=== PATIENT | female | born 1960 | race Caucasian/White ===

== ENCOUNTER 2020-09-03 09:09 | Outpatient (REF) | payer OTHER, SELFPAY ==
[2020-09-03 11:08] LABS: Free T4 (Free Thyroxine) 2.26 ng/dL (0.71-1.85); Thyroid Stimulating Hormone 0.01 uIU/mL (0.32-4.0)
== END 2020-09-03 09:10 | disposition home or self-care (01) ==
LOC: HO.LAB 09:09
PROVIDERS: PCP Internal Medicine; Visit Provider Internal Medicine Endocrinology, Diabetes & Metabolism
DX: E03.8 Other specified hypothyroidism (principal)
CPT/HCPCS: 84439; 84443

== ENCOUNTER → 2020-09-04 10:45 | Outpatient (BNVA) | payer OTHER, SELFPAY | PROVIDERS: PCP Internal Medicine; Visit Provider Internal Medicine Endocrinology, Diabetes & Metabolism | DX: E11.65 Type 2 diabetes mellitus with hyperglycemia (principal); E11.40 Type 2 diabetes mellitus with diabetic neuropathy, unspecified; E11.3293 Type 2 diabetes mellitus with mild nonproliferative diabetic retinopathy without macular edema, bilateral; I10 Essential (primary) hypertension; E03.9 Hypothyroidism, unspecified; E55.9 Vitamin D deficiency, unspecified; E66.9 Obesity, unspecified; E04.2 Nontoxic multinodular goiter; D51.0 Vitamin B12 deficiency anemia due to intrinsic factor deficiency | CPT/HCPCS: 82947; 99212 ==

== ENCOUNTER 2020-12-03 08:30 | Outpatient (REF) | payer OTHER, SELFPAY ==
[2020-12-03 09:44] LABS: Hematocrit 48.6 % (37-47); Hemoglobin 15.3 g/dl (12.0-16.0); Mean Corpuscular HGB Conc 31.5 g/dl (31.0-35.0); Mean Corpuscular Hemoglobin 27.2 pg (27.0-33.0); Mean Corpuscular Volume 86.3 fL (80-98); Mean Platelet Volume 12.4 fL (9.4-12.3); Platelet Count 188 X10*3/uL (160-400); Red Blood Count 5.63 X10*6/uL (4.20-5.50); Red Cell Distribution Width 13.5 % (11.0-16.0); White Blood Count 4.1 X10*3/uL (4.8-10.8)
[2020-12-03 10:12] LABS: Creatinine Urine 67.02 mg/dL; Microalbumin Urine < 5.0 mg/L
[2020-12-03 10:21] LABS: Alanine Aminotransferase 55 U/L (0-31); Alkaline Phosphatase 541 U/L (39-117); Anion Gap 13 (12-20); Aspartate Amino Transferase 40 U/L (5-31); Bilirubin Total 1.8 mg/dL (0.0-1.0); Blood Urea Nitrogen 15 mg/dL (9-16); Carbon Dioxide 31 mmol/L (22-29); Chloride 101 mmol/L (96-108); Cholesterol 159 mg/dL; Estimated Glomerular Filt Rate 51; Glucose Fasting 175 mg/dL (60-99); HDL Cholesterol 38 mg/dL; LDL Cholesterol Calculated 82 mg/dl; Potassium 4.3 mmol/L (3.3-5.1); Sodium 141 mmol/L (135-145); Total Protein 7.2 g/dL (6.5-8.0); Triglycerides 195 mg/dL
[2020-12-03 10:34] LABS: Free T4 (Free Thyroxine) 1.55 ng/dL (0.71-1.85); Thyroid Stimulating Hormone 0.19 uIU/mL (0.32-4.0); Vitamin D 25-OH Total 33.1 ng/mL (>30)
[2020-12-03 11:32] LABS: Vitamin B12 1556 pg/mL (200-900)
[2020-12-04 03:27] LABS: LDL Cholesterol Direct 82 mg/dL (<100)
== END 2020-12-03 08:31 | disposition home or self-care (01) ==
LOC: HO.LAB 08:30
PROVIDERS: PCP Internal Medicine; Visit Provider Internal Medicine Endocrinology, Diabetes & Metabolism
DX: E11.65 Type 2 diabetes mellitus with hyperglycemia (principal)
CPT/HCPCS: 36415; 80053; 80061; 82043; 82306; 82607; 83721; 84439; 84443; 85027

== ENCOUNTER → 2020-12-04 10:27 | Outpatient (BNVA) | payer OTHER, SELFPAY | PROVIDERS: PCP Internal Medicine; Visit Provider Internal Medicine Endocrinology, Diabetes & Metabolism | DX: E11.65 Type 2 diabetes mellitus with hyperglycemia (principal); E11.42 Type 2 diabetes mellitus with diabetic polyneuropathy; E11.3293 Type 2 diabetes mellitus with mild nonproliferative diabetic retinopathy without macular edema, bilateral; E03.8 Other specified hypothyroidism; E06.3 Autoimmune thyroiditis; E04.2 Nontoxic multinodular goiter; E78.5 Hyperlipidemia, unspecified; E55.9 Vitamin D deficiency, unspecified; E66.9 Obesity, unspecified; I10 Essential (primary) hypertension; D51.0 Vitamin B12 deficiency anemia due to intrinsic factor deficiency; R94.5 Abnormal results of liver function studies | CPT/HCPCS: 82947; 99212 ==

== ENCOUNTER → 2021-01-01 11:36 | Outpatient (BNVA) | payer OTHER, SELFPAY | PROVIDERS: PCP Internal Medicine; Visit Provider Physician Assistant | DX: R94.5 Abnormal results of liver function studies (principal); R68.81 Early satiety | CPT/HCPCS: 99212 ==

== ENCOUNTER 2021-01-08 10:05 | Outpatient (REF) | payer OTHER, SELFPAY ==
[2021-01-08 18:20] LABS: Thyroid Stimulating Hormone 3.05 uIU/mL (0.32-4.0)
[2021-01-08 18:27] LABS: Alanine Aminotransferase 28 U/L (0-31); Albumin Level 3.6 g/dL (3.5-5.0); Alkaline Phosphatase 490 U/L (39-117); Aspartate Amino Transferase 27 U/L (5-31); Bilirubin Direct 1.3 mg/dL (0.0-0.5); Bilirubin Total 1.7 mg/dL (0.0-1.0); Gamma Glutamyl Transpeptidase 753 U/L (7-33); Total Protein 6.5 g/dL (6.5-8.0)
[2021-01-09 04:30] LABS: HBc Num1 0.07 S/CO (0.00-0.79); Hepatitis B Core Antibody Nonreactive (Nonreactive); ~HepC Num1 0.05 S/CO (0.00-0.79); ~Hepatitis C Antibody Nonreactive (Nonreactive)
[2021-01-09 04:43] LABS: HBS Num1 0.41 mIU/mL (0-7.99); HBsAGNum1 0.41 S/CO (0.00-0.99); Hepatitis B Surface Antigen Negative (Negative); ~Hepatitis B Surface Antibody NONREACTIVE (Nonreactive)
[2021-01-10 04:50] LABS: Hepatitis A Antibody IgM 0.09 Index (0-0.79); ~Hepatitis A Antibody IgM Nonreactive (Nonreactive)
[2021-01-10 10:41] LABS: Anti Nuclear Antibody Pattern Nuclear, Speckled; Anti Nuclear Antibody Screen POSITIVE (NEGATIVE); Anti Nuclear Antibody Titer 1:40 titer
[2021-01-10 15:56] LABS: Mitochondrial Antibodies NEGATIVE (NEGATIVE)
[2021-01-15 11:57] LABS: Smooth Muscle Antibody <20 U (<20)
== END 2021-01-08 10:06 | disposition home or self-care (01) ==
LOC: HO.LAB 10:05
PROVIDERS: PCP Internal Medicine; Visit Provider Physician Assistant
DX: R74.8 Abnormal levels of other serum enzymes (principal); R74.01 Elevation of levels of liver transaminase levels; R94.5 Abnormal results of liver function studies; R79.89 Other specified abnormal findings of blood chemistry; K59.09 Other constipation
CPT/HCPCS: 36415; 80076; 82977; 84443; 86038; 86039; 86255; 86256; 86704; 86706; 86709; 86803; 87340

== ENCOUNTER 2021-02-05 09:32 | Outpatient (REF) | payer OTHER, SELFPAY ==
[2021-02-05 11:29] LABS: Free T4 (Free Thyroxine) 0.46 ng/dL (0.71-1.85)
== END 2021-02-05 09:33 | disposition home or self-care (01) ==
LOC: HO.LAB 09:32
PROVIDERS: Visit Provider Internal Medicine Endocrinology, Diabetes & Metabolism
DX: E03.8 Other specified hypothyroidism (principal); E04.2 Nontoxic multinodular goiter; E06.3 Autoimmune thyroiditis
CPT/HCPCS: 36415; 84439; 84443

== ENCOUNTER → 2021-02-17 09:05 | Outpatient (BNVA) | payer OTHER, SELFPAY | PROVIDERS: PCP Internal Medicine; Visit Provider Dietitian, Registered | DX: E11.65 Type 2 diabetes mellitus with hyperglycemia (principal) | CPT/HCPCS: 97802 ==

== ENCOUNTER 2021-02-25 08:38 | Outpatient (REF) | payer OTHER, SELFPAY ==
--- NOTE | ~2021-02-25 | US_ITS ---
EXAMINATION: US COMPLETE ABDOMEN WITH LIVER ELASTOGRAPHY CLINICAL INFORMATION: COMPARISON: None. TECHNIQUE: Real-time imaging of the abdominal viscera. Noninvasive ultrasound liver fibrosis assessment is performed using Alli ElastPQ point quantification shear wave elastography (pSWE) with a C5-2 MHz transducer. Multiple elastography samples are obtained. FINDINGS: PANCREAS: Normal. ABDOMINAL AORTA: The proximal, middle, and distal aortic segments are normal in caliber. INFERIOR VENA CAVA: Visualized portions are normal. LIVER: Liver echotexture is slightly heterogeneous. No focal liver lesion is seen. There is intrahepatic biliary duct dilatation. The liver is slightly enlarged. The right lobe measures 20 cm in length. The left lobe measures 10 cm in length. Portal flow is normal/hepatopedal Shear wave liver elastography median stiffness is 1.9 m/s (reference: normal median stiffness is 1.3 m/s or less). IQR/median stiffness to assess sampling precision is 0.5 (reference: good quality data set is IQR/median stiffness of 0.15 or less). GALLBLADDER: The gallbladder is contracted. There are gallstones in the gallbladder. COMMON BILE DUCT: Slightly dilated measuring 1.2 cm in diameter. RIGHT KIDNEY: There is a 7 x 9 x 7 mm solid echogenic lesion in the midpole suggestive of an angiomyolipoma. There is a 1.6 x 1.7 x 1.3 cm complex cyst with several septations in the midpole. There is a 3 x 4 mm simple cyst in the midpole. No hydronephrosis. No renal calculi. The kidney measures 10 cm in maximum dimension. LEFT KIDNEY: There is a 1 cm cyst in the lower pole. There is fullness of the left renal pelvis. No renal calculi. The kidney measures 9.5 cm in maximum dimension. SPLEEN: Normal. The spleen measures 12.6 heterogeneous cm in maximum dimension. FREE FLUID: None. US/US abdomen comp w elastography IMPRESSION: 1. Impression: Heterogeneous appearing slightly enlarged liver. Mild intra and extrahepatic biliary duct dilatation. Gallstones. Bilateral renal cysts. 8 mm echogenic lesion in the right kidney probably representing an angiomyolipoma. 2. Liver elastography: Limited due to sampling error. Liver stiffness is elevated questionable for compensated advanced chronic liver disease. REFERENCE: Society of Radiologists in Ultrasound Liver Stiffness Thresholds (2020): LIVER STIFFNESS THRESHOLDS: *Liver Stiffness equal or less than 1.3 m/s: High probability of being normal. *Liver Stiffness less than 1.7 m/s: In the absence of other known clinical signs, rules out compensated advanced chronic liver disease. *Liver Stiffness 1.7-2.1 m/s: Suggestive of compensated advanced chronic liver disease but need further test for confirmation. *Liver Stiffness over 2.1 m/s: Rules in compensated advanced chronic liver disease. *Liver Stiffness over 2.4 m/s: Suggestive of clinically significant portal hypertension. QUALITY OF DATA SET: *IQR/Median value equal or less than 0.15 implies a quality data set. *IQR/Median value over 0.15 implies a poor quality data set. SIGNIFICANT CHANGE FROM PRIOR EXAM: Significant change if liver stiffness measurement is 10% or greater from prior exam. OTHER CONSIDERATIONS: The stage of liver fibrosis may be overestimated in the setting of acute hepatitis, liver inflammation, elevated liver function tests, hepatic vascular congestion, obstructive cholestasis, non-fasting state, and infiltrative diseases such as amyloidosis and lymphoma. In some patients with NAFLD, the liver stiffness thresholds for compensated advanced chronic liver disease may be lower. In causes other than viral hepatitis and NAFLD, liver stiffness thresholds are not well established.
== END 2021-02-25 08:39 | disposition home or self-care (01) ==
LOC: HO.US 08:38
PROVIDERS: Visit Provider Physician Assistant
DX: R94.5 Abnormal results of liver function studies (principal)
CPT/HCPCS: 76705; 76981

== ENCOUNTER 2021-03-10 08:54 | Outpatient (REF) | payer OTHER, SELFPAY ==
[2021-03-10 14:15] LABS: Free T4 (Free Thyroxine) 1.69 ng/dL (0.71-1.85); Thyroid Stimulating Hormone 0.05 uIU/mL (0.32-4.0)
== END 2021-03-10 08:55 | disposition home or self-care (01) ==
LOC: HO.10HDL 08:54
PROVIDERS: PCP Internal Medicine; Visit Provider Internal Medicine Endocrinology, Diabetes & Metabolism
DX: E11.65 Type 2 diabetes mellitus with hyperglycemia (principal); E11.40 Type 2 diabetes mellitus with diabetic neuropathy, unspecified; E11.3293 Type 2 diabetes mellitus with mild nonproliferative diabetic retinopathy without macular edema, bilateral; E66.09 Other obesity due to excess calories; K21.9 Gastro-esophageal reflux disease without esophagitis; E78.1 Pure hyperglyceridemia; I10 Essential (primary) hypertension; E06.3 Autoimmune thyroiditis; E04.2 Nontoxic multinodular goiter; D51.0 Vitamin B12 deficiency anemia due to intrinsic factor deficiency; E03.8 Other specified hypothyroidism; E78.5 Hyperlipidemia, unspecified; E55.9 Vitamin D deficiency, unspecified; Z68.32 Body mass index [BMI] 32.0-32.9, adult; Z79.899 Other long term (current) drug therapy; Z79.82 Long term (current) use of aspirin; Z79.4 Long term (current) use of insulin; Z98.84 Bariatric surgery status
CPT/HCPCS: 36415; 82947; 84439; 84443; 99212

== ENCOUNTER → 2021-07-09 08:03 | Outpatient (REF) | payer OTHER, SELFPAY ==
--- NOTE | ~2021-07-09 | NM_ITS ---
EXAMINATION: ND RADIONUCLIDE SOLID FOOD GASTRIC EMPTYING 4-HOUR STUDY CLINICAL INFORMATION: Early satiety. COMPARISON: No previous gastric emptying studies available for comparison. TECHNIQUE: A standard meal consisting of 4 oz of Egg Beaters brand tagged with 830 microcuries Tc-99m Sulfur Colloid, 8 oz water and 2 slices of toast with jelly was administered orally to the patient. Images were obtained using a dual head gamma camera in the anterior and posterior projections over of the stomach immediately post ingestion and at hourly intervals up to 4 hours post ingestion. The anterior and posterior counts at each time interval were averaged using the geometric mean and expressed as percentage of the immediate post ingestion counts. FINDINGS: There is good visualization of activity in the stomach immediately post ingestion. As the study progresses, there is visualization of progressively increasing small bowel activity. However at the end of the study there is mild abnormal retention of activity in the stomach at 4 hours. 1 hour 71% (normal 37%-90%) 2 hours 52% (normal 30%-60%) 3 hours 30% 4 hours 23% (normal 0%-10%) NM/ND gastric emptying study IMPRESSION: Abnormal study. There is mild abnormal retention of solid food in the stomach at 4 hours.
== END ==
LOC: HO.NUCMED 08:03
PROVIDERS: PCP Internal Medicine; Visit Provider Physician Assistant
DX: R68.81 Early satiety (principal)
CPT/HCPCS: 78264; A9541

== ENCOUNTER 2022-06-05 11:50 | Outpatient (REF) | payer OTHER, SELFPAY ==
--- NOTE | 2022-06-05 14:16 | MHC.AU.MED ---
Medical Clearance for Hearing Instrumentation Date: 06/05/22 Patient Name: Linda Concepcion Date of : 1960 Primary Care Provider: Referring Provider: Anjana Mata We have seen your patient on 06/05/22 and have determined that they are a candidate for amplification (See accompanying report). Specifically, they would benefit from: Hearing aid use in both ears There is a statute that addresses Medical Evaluation Requirements prior to fitting a patient with a hearing aid. According to [place] statute 265 CMR:6.03(1), (a) General. Except as provided in 265 CMR 6.03(1)(b), a market development trainer shall not sell a hearing aid unless the prospective user has presented to the market development trainer a written statement signed by a licensed physician that states that the patient's hearing loss has been medically evaluated and the patient may be considered a candidate for a hearing aid. The medical evaluation must have taken place within the preceding six months. Please note: Due to the [place] Statute referenced above, we cannot accept a signature other than that of a licensed physician. FREIGHT TRAFFIC CONSULTANT and PA signatures cannot be accepted. I am in agreement with the above recommendation. There is no medical contraindication for hearing instrumentation. Physician Signature Date Physician Name (Printed)
--- NOTE | 2022-06-11 08:57 | MHC.AU.ANO ---
Adult Audiological Evaluation Date of Visit: 06/05/22 Dialysis Registered Nurse Used: Not Applicable Reason for Appointment: Referred for audiologic evaluation due to increasing hearing difficulties. Linda has a history of asymmetric hearing loss and was fit with binaural hearing aids over 5 years ago. Linda notes she lost her hearing aids when she moved and needs replacements. Has hearing been tested previously?: Yes Previous Hearing Test Results: Not available for review Hearing Handicap Inventory: HHIE SCORE: 30 Based on HHIE score, patient has: Severe perceived hearing handicap Ear History: Family History of Hearing Loss?: Yes: Mother Ear Infections in Childhood: Both Ears Bothersome Tinnitus/Ringing/Noises in Ears: Right Ear Ear used on the phone:Left History of occupational noise exposure?: Yes Medical History: Medical History: Diabetes, High Blood Pressure, Thyroid Disease, Breast cancer treated with surgery and radiation Allergies: Lisinopril Medication List: Aspirin, Calcium, Flovent, Insulin Lispro, Jardiance, ProAir, D3, Atorvastatin, Diclofenac, Gabapentin, Levothyroxine, Losartan, Montelukast, Omprazole, Pioglitazone, Trazodone Otoscopy: Right Ear: Unremarkable Left Ear: Unremarkable Tympanometry: Tympanometry performed due to: To assess integrity of the middle ear system Right Ear: Reduced Middle Ear Compliance (Type As) Left Ear: Reduced Middle Ear Compliance (Type As) Otoacoustic Emissions Frequency Range Used: Did Not Test Hearing Evaluation: Transducer(s) Used: Insert Earphones Bone Conduction Method: Conventional Audiometry Stimuli Used: Pure Tones Right Ear: Description of Hearing: Severe to profound mixed hearing loss Left Ear: Description of Hearing: Moderate to severe sensorineural hearing loss Speech Recognition Threshold (SRT): Method Used: Monitored Live Voice Stimuli Used: Spondee Words Right Ear: 75 dB HL Left Ear: 55 dB HL Word Discrimination: Method: Recorded Lists Word Lists Used: NU-6 Right Ear: 68% at 100 dB hL Left Ear: 80% at 95 dB HL Interpretation of Results: This moderate to profound hearing loss causes significant speech understanding difficulties during Linda' typical day and binaural hearing aids are needed to improve communication and sound awareness for safety. Recommendations: Trial with amplification is recommended. Medical clearance from a physician is required before fitting. Hearing Aid Fitting will be scheduled when all materials arrive. Audiological re-evaluation in one year. Diagnosis: Primary Diagnosis: H90.3 Bilateral Sensorineural Hearing Loss Services Performed: Comprehensive Audiological Evaluation (CPT 73648) Limited Otoacoustic Emissions (CPT 56208) Signature: Provider: Shantal Hays, [facility]
--- NOTE | 2022-06-11 13:34 | MHC.AU.HAS ---
Hearing Aid Evaluation Date of Visit: 06/05/22 Historical Information: Description of Hearing: Right ear - Severe to profound mixed hearing loss Left ear - Moderate to severe sensorineural hearing loss Current personal amplification information, if applicable: aids obtained over 5 years ago were lost when moving Summary: This moderate to profound hearing loss causes significant speech understanding difficulties and binaural hearing aids are needed to improve communication and sound awareness for safety. Hearing Aid Prescription: Based on the individual?s shared listening needs, communication environments, dexterity, desire for connectivity, and personal preferences, the following prescription for amplification has been made: Right ear: Psychiatric Aide: Phonak Model: Stray Bootseo P 70-R Battery Size: Rechargeable Color: Silver Koroma Academic Computing Director: #1 Power Type of Mold: Phonak canal lock c-shell Left ear: Left ear prescription to be same as Right Hearing Aid above: Psychiatric Aide: Phonak Model: Audeo P 70-R Battery Size: Rechargeable Color: Silver Koroma Academic Computing Director: #1 Medium Type of Mold: Phonak canal lock c-shell Plan of Care: Patient wishes to purchase hearing aids as prescribed Action Taken/Action Needed: Earmold Impressions Taken, Prior authorization to be requested, Medical Clearance to be requested from PCP/ENT Hearing Instrument Fitting to be scheduled when materials arrive Primary Diagnosis: H90.3 Bilateral Sensorineural Hearing Loss Signature:Provider: Facundo Hays, [facility]
== END 2022-06-05 11:51 | disposition home or self-care (01) ==
LOC: HO.SH 11:50
PROVIDERS: Visit Provider Internal Medicine
DX: Z01.118 Encounter for examination of ears and hearing with other abnormal findings (principal); Z46.1 Encounter for fitting and adjustment of hearing aid; H90.3 Sensorineural hearing loss, bilateral
CPT/HCPCS: 92557; 92587; 92591; V5275

== ENCOUNTER 2022-07-16 10:22 | Outpatient (REF) | payer OTHER, SELFPAY ==
--- NOTE | 2022-07-16 11:25 | MHC.AU.HFA ---
Hearing Instrument Fitting- Adult- Binaural Date of Visit: 07/16/22 Hearing Instruments Dispensed: Right Ear: Airplane Navigator: Phonak Audeo P70-R #[id number] Repair Warranty: 10/03/25 Loss and Damage Warranty: 10/03/25 Service Plan: 07/16/2022 Battery Size: Rechargeable Color: Silver Koroma Surgery Consultant: #1 UP Type of Mold: Phonak canal lock c-shell #[id number] Warranty 10/05/2022 Type of Wax Guard: CeruStop Left Ear: Airplane Navigator: Phonak Audeo P70-R #[id number] Repair Warranty: 10/03/2025 Loss and Damage Warranty: 10/03/2025 Service Plan: 07/16/2022 Battery Size: Rechargeable Color: Silver Koroma Surgery Consultant: #1 M Type of Mold: Phonak canal lock c-shell #[id number] Warranty 10/05/2022 Type of Wax Guard: CeruStop Summary of Fitting: Feedback consulting solution manager run. Verifit performed and levels adjusted to better reach targets. Target gain at 100%. Patient was pleased with the sound of the instruments and did not feel any additional adjustments were necessary. She reports the sound is comfortable and clear, and also is effectively masking her tinnitus. Hearing aids were paired to her phone. Downloaded the noemi and tried to connect, but connection was slow. Patient reports she will try connecting to the noemi at home. Recommendations: Patient is an experienced hearing aid user. She will call for follow-up as needed. Diagnosis Code(s): Primary Diagnosis: H90.A31 Mixed HL, Unilateral Right Ear, W/Restricted Contralateral Signature: Provider: Estevan Cassidy, [facility]
== END 2022-07-16 10:23 | disposition home or self-care (01) ==
LOC: HO.HAP 10:22
PROVIDERS: Visit Provider Internal Medicine
DX: Z46.1 Encounter for fitting and adjustment of hearing aid (principal); H90.A31 Mixed conductive and sensorineural hearing loss, unilateral, right ear with restricted hearing on the contralateral side
CPT/HCPCS: 92621; V5011; V5020; V5160; V5261; V5264

== ENCOUNTER 2023-01-05 14:42 | Outpatient (REF) | payer OTHER, SELFPAY ==
--- NOTE | ~2023-01-05 | US_ITS ---
EXAMINATION: US THYROID CLINICAL INFORMATION: Nontoxic multinodular goiter. COMPARISON: Ultrasound thyroid 02/07/2020 and 03/23/2019. US-guided thyroid biopsy 04/17/2019. TECHNIQUE: Linear transducer grayscale and color Doppler examination with attention to the region of the thyroid. FINDINGS: SIZE: Measurements of the thyroid lobes and nodules are given in sagittal, anteroposterior and transverse dimensions respectively. Right Thyroid Lobe: 3.7 x 0.8 x 1.0 cm, volume 1.6 mL. Previously 2.7 x 0.8 x 1.2 cm, volume 1.4 mL. Parenchyma: The gland echotexture is heterogeneous. Thyroid vascularity is normal. Left Thyroid Lobe: 2.9 x 0.8 x 1.1 cm, volume 1.3 mL. Previously 3.3 x 0.9 x 1.2 cm, volume 1.9 mL. Parenchyma: The gland echotexture is heterogeneous. Thyroid vascularity is normal. Isthmus: 0.3 cm in maximum AP dimension. Previously 0.3 cm. Estimated total number of nodules greater than or equal to 1 cm: 0. Secondary Social Studies Teacher nodules are described as follows: 1. Location: Left mid. Size: 0.7 x 0.4 x 0.4 cm, volume 0.07 mL. Previously: 0.8 x 0.5 x 0.7 cm, volume 0.1 mL. Nodule characteristics: Composition: Solid (2). Echogenicity: Hyperechoic (1). Shape: Not taller than wide (0). Margins: Smooth (0). Echogenic Foci: None (0). ACR TI-RADS total points: 3 ACR TI-RADS category: 3 Significant change in size (>/= 20% in 2 dimensions and minimal increase of 2 mm or 50% or greater increase in volume): Decreased size Change in features: No Change in ACR TI-RADS risk category: No 2. Location: Isthmus. Size: 0.5 x 0.2 x 0.6 cm, volume 0.03 mL. Previously: 0.6 x 0.4 x 0.6 cm, volume 0.08 mL. Nodule characteristics: Composition: Solid (2). Echogenicity: Hypoechoic (2). Shape: Not taller than wide (0). Margins: Smooth (0). Echogenic Foci: None (0). ACR TI-RADS total points: 4 ACR TI-RADS category: 4 Significant change in size (>/= 20% in 2 dimensions and minimal increase of 2 mm or 50% or greater increase in volume): Decreased size Change in features: No Change in ACR TI-RADS risk category: No NODES: No lymphadenopathy is seen in the tissue surrounding the thyroid gland. US/US thyroid IMPRESSION: Small heterogeneous thyroid gland. No worrisome change in small thyroid nodules. These do not meet TI RADS criteria for ultrasound follow-up or fine-needle aspiration. ACR TI-RADS RECOMMENDATION REFERENCE: Ultrasound-guided fine-needle aspiration, followup ultrasound, no further follow up. * TR1 (0 point) and TR2 (2 points): No FNA or follow up. * TR3 (3 points): FNA if more than or equal to 2.5 cm in maximum dimension, followup ultrasound in 1, 3 and 5 years if 1.5 to 2.4 cm in maximum dimension. * TR4 (4-6 points): FNA if more than or equal to 1.5 cm in maximum dimension, followup ultrasound in 1, 2, 3 and 5 years if 1 to 1.4 cm in maximum dimension. * TR5 (more than or equal to 7 points): FNA if more than or equal to 1 cm in maximum dimension, followup ultrasound every year for 5 years if 0.5 to 0.9 cm in maximum dimension. * TR3, TR4 or TR5 nodules that are below the size threshold for followup receive no follow up.
== END 2023-01-05 14:43 | disposition home or self-care (01) ==
LOC: HO.US 14:42
PROVIDERS: PCP Internal Medicine; Visit Provider Internal Medicine Endocrinology, Diabetes & Metabolism
DX: E04.2 Nontoxic multinodular goiter (principal); E11.65 Type 2 diabetes mellitus with hyperglycemia
CPT/HCPCS: 76536

== ENCOUNTER 2023-01-18 08:21 | Outpatient (REF) | payer OTHER, SELFPAY ==
[2023-01-18 09:32] LABS: Anion Gap 12 (12-20); Blood Urea Nitrogen 16 mg/dL (9-16); Calcium 9.4 mg/dL (8.4-10.2); Carbon Dioxide 30 mmol/L (22-29); Chloride 102 mmol/L (96-108); Cholesterol 157 mg/dL; Estimated Glomerular Filt Rate 58; Glucose Random 120 mg/dL (60-115); HDL Cholesterol 50 mg/dL; LDL Cholesterol Calculated 89 mg/dl; Sodium 140 mmol/L (135-145); Triglycerides 92 mg/dL
[2023-01-18 09:43] LABS: Creatinine Urine 113.16 mg/dL
[2023-01-18 09:48] LABS: Thyroid Stimulating Hormone 0.02 uIU/mL (0.32-4.0)
== END 2023-01-18 08:22 | disposition home or self-care (01) ==
LOC: HO.LAB 08:21
PROVIDERS: PCP Internal Medicine; Visit Provider Internal Medicine Endocrinology, Diabetes & Metabolism
DX: E11.65 Type 2 diabetes mellitus with hyperglycemia (principal); E04.2 Nontoxic multinodular goiter
CPT/HCPCS: 36415; 80048; 80061; 82043; 84439; 84443

== ENCOUNTER → 2023-01-20 08:49 | Outpatient (BNVA) | payer OTHER, SELFPAY | PROVIDERS: PCP Internal Medicine; Visit Provider Internal Medicine Endocrinology, Diabetes & Metabolism | DX: E03.8 Other specified hypothyroidism (principal); E06.3 Autoimmune thyroiditis | CPT/HCPCS: 99212 ==

== ENCOUNTER 2023-06-10 06:49 | Outpatient (REF) | payer OTHER, SELFPAY ==
[2023-06-10 09:00] LABS: Free T4 (Free Thyroxine) 1.13 ng/dL (0.71-1.85); Thyroid Stimulating Hormone 4.87 uIU/mL (0.32-4.0)
== END 2023-06-10 06:50 | disposition home or self-care (01) ==
LOC: HO.LAB 06:49
PROVIDERS: PCP Internal Medicine; Visit Provider Internal Medicine Endocrinology, Diabetes & Metabolism
DX: E03.8 Other specified hypothyroidism (principal); E06.3 Autoimmune thyroiditis
CPT/HCPCS: 36415; 84439; 84443

== ENCOUNTER 2023-08-30 10:43 | Outpatient (AMB) | payer OTHER, SELFPAY ==
--- NOTE | 2023-08-30 10:45 | MHC.OFFVIS ---
Intake Vital Signs 08/30/23 10:46 Height 5 ft 6.97 in Weight 218 lb 0.595 oz BMI 34.2 BP 104/66 Blood Pressure Location Rt brachial Position Sitting Pulse 77 Pulse Source Pulse Oximeter Intake Visit Reasons: f/u hypothyroidism Intake Note: Patient present for Hypothyroidism follow up visit. Skip Operator Required: No Accompanied by: GAS DESULFURIZER Allergies lisinopril [LISINOPRIL] Allergy (Severe, Verified 08/30/23 10:49) ITCHING,DYSPNEA, edema Medication List - Last Reconciled 08/30/23 by Urbano Duffy MD atorvastatin 20 mg PO DAILY bisacodyl (Dulcolax (bisacodyl)) 5 mg PO BEDTIME 30 days blood sugar diagnostic (FreeStyle Lite Strips) 1 strip miscellaneous QID 90 days blood-glucose meter (FreeStyle Lite Meter kit) As directed calcium carbonate-vitamin D3 600 mg-5 mcg (200 unit) (Calcium 600 + D(3)) 1 tab PO BID cholecalciferol (vitamin D3) 25 mcg PO DAILY 30 days cyanocobalamin (vitamin B-12) 2,500 mcg sublingual DAILY empagliflozin (Jardiance) 25 mg PO DAILY FreeStyle Lancets (lancets) 4 times a day NS gabapentin 800 mg PO BEDTIME gemfibrozil 600 mg PO DAILY Humalog KwikPen Insulin (insulin lispro) 6-8 units before each meal subcut 3 times a day; 30 days NS insulin glargine (Lantus Solostar U-100 Insulin) 40 units subcut DAILY levothyroxine (Tirosint) 125 mcg PO DAILY losartan 25 mg PO DAILY methylcellulose (laxative) (Citrucel) 500 mg PO BID montelukast 10 mg PO QPM omeprazole 20 mg PO BID pen needle, diabetic (BD Melia 2nd Gen Pen Needle) once a day pen needle, diabetic (BD Melia 2nd Gen Pen Needle) 5 times a day pioglitazone 30 mg PO DAILY 30 days trazodone 100 mg PO BEDTIME HPI HPI Comments History of Present Illness Details 63 yo female , today for follow-up visit, hypothyroidism . Today's visit focus is on thyroid She is feeling well. She is currently on Tirosint 225 mcg daily. She is 100% adherent and she has a good method of administration. US thyroid 02/07/2020 Right Thyroid Lobe: 2.7 x 0.8 x 1.2 cm, volume 1.4 mL. Previously 2.6 x 0.7 x 1.1 cm, volume 1.0 mL. Parenchyma: The gland echotexture is heterogeneous. Thyroid vascularity is normal. Left Thyroid Lobe: 3.3 x 0.9 x 1.2 cm, volume 1.9 mL. Previously 2.8 x 1.0 x 1.2 cm, volume 1.7 mL. Parenchyma: The gland echotexture is heterogeneous. Thyroid vascularity is normal. Isthmus: 0.3 cm in maximum AP dimension. Previously 0.3 cm. RIGHT THYROID LOBE: No nodules. ISTHMUS: There is 1 nodule seen. 1. Location: Isthmus. Size: 0.6 x 0.4 x 0.6 cm. Previous: 0.5 x 0.3 x 0.4 cm. Nodule characteristics: Hypoechoic, smooth margin, no calcification and no intranodular flow. LEFT THYROID LOBE: There is 1 nodule seen. 1. Location: Middle. Size: 0.8 x 0.5 x 0.7 cm. Previous: 0.6 x 0.3 x 0.5 cm. Nodule characteristics: Hypoechoic, smooth margin, no calcification and positive peripheral flow. NODES: There is a left cervical level 4 lymph node adjacent to the thyroid gland. This measures 0.8 cm in transverse dimension. This is normal in size and demonstrates normal ultrasound morphology and flow. Lymph nodes are decreased in size and number compared to April 2019 exam. Recent ultrasound showed subcentimeter nodules in the isthmus left lobe. Laboratory Tests 02/05/21 09:52 TSH 46.70 H Free T4 0.46 L Laboratory Tests 04/10/20 09/03/20 09/04/20 10:30 09:27 11:01 Hgb Hct Sodium Potassium BUN Creatinine Estimated GFR Glucose (Clinic) 186 H Fasting Glucose Hgb A1c (Clinic) Hgb A1c Fingerstic k 6.4 Calcium AST ALT Alkaline Phosphata se Albumin Triglycerides Cholesterol LDL Cholesterol Di rect LDL Cholesterol, C alc HDL Cholesterol Vitamin B12 25-OH Vitamin D To jewel TSH 0.01 L Urine Creatinine Urine Microalbumin 09/04/20 12/03/20 12/03/20 11:11 09:05 09:05 Hgb 15.3 Hct 48.6 H Sodium 141 Potassium 4.3 BUN 15 Creatinine 1.09 Estimated GFR 51 Glucose (Clinic) Fasting Glucose 175 H Hgb A1c (Clinic) 8.4 H Hgb A1c Fingerstic k Calcium 10.0 AST 40 H ALT 55 H Alkaline Phosphata se 541 H Albumin 4.0 Triglycerides 195 Cholesterol 159 LDL Cholesterol Di rect LDL Cholesterol, C alc 82 HDL Cholesterol 38 Vitamin B12 25-OH Vitamin D To jewel 33.1 TSH 0.19 L Urine Creatinine Urine Microalbumin 12/03/20 12/03/20 12/03/20 09:05 09:05 Unknown Hgb Hct Sodium Potassium BUN Creatinine Estimated GFR Glucose (Clinic) Fasting Glucose Hgb A1c (Clinic) Hgb A1c Fingerstic k Calcium AST ALT Alkaline Phosphata se Albumin Triglycerides Cholesterol LDL Cholesterol Di rect 82 LDL Cholesterol, C alc HDL Cholesterol Vitamin B12 1556 H 25-OH Vitamin D To jewel TSH Urine Creatinine 67.02 Urine Microalbumin < 5.0 [facility] Medical History (Updated 03/10/21 @ 09:50 by Ridge Thapa MD) Early satiety Abnormal liver function test Obesity Hypertension Vitamin D deficiency Pernicious anemia Dyslipidemia Hypothyroidism Non-toxic multinodular goiter Non-proliferative diabetic retinopathy, mild, both eyes Diabetic neuropathy associated with type 2 diabetes mellitus Diabetes type 2, uncontrolled Surgical History History of lymph node dissection of right axilla Hx of bariatric surgery History of partial mastectomy of left breast Family History Father Diabetes mellitus Hypertension Mother Diabetes mellitus Hypertension Household Members: Spouse Alcohol intake: never Current occupational status: retired Physical Exam Vital Signs: Last Vital Signs Pulse 77 08/30/23 10:46 BP 104/66 08/30/23 10:46 BMI result Body Mass Index 34.2 Const Other: Thyroid gland is decreased in size weighs about 10 g. There are no thyroid nodules palpated. 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 She is currently replaced with Tirosint 225 ug . She appears to be clinically euthyroid but had elevated TSH 2 mos ago. 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
[2023-08-30 10:46] VITALS: BP 104/66; PULSE 77; BMI 34.2
== END 2023-08-30 11:14 | disposition home or self-care (01) ==
PROVIDERS: PCP Internal Medicine; Visit Provider Internal Medicine Endocrinology, Diabetes & Metabolism
DX: E03.8 Other specified hypothyroidism (principal); E06.3 Autoimmune thyroiditis
CPT/HCPCS: 99213

== ENCOUNTER → 2023-08-30 10:43 | Outpatient (BNVA) | payer OTHER, SELFPAY | PROVIDERS: PCP Internal Medicine; Visit Provider Internal Medicine Endocrinology, Diabetes & Metabolism | DX: E06.3 Autoimmune thyroiditis (principal); E03.8 Other specified hypothyroidism; E11.65 Type 2 diabetes mellitus with hyperglycemia; E11.40 Type 2 diabetes mellitus with diabetic neuropathy, unspecified; Z83.3 Family history of diabetes mellitus; Z82.49 Family history of ischemic heart disease and other diseases of the circulatory system; Z79.4 Long term (current) use of insulin; Z79.84 Long term (current) use of oral hypoglycemic drugs | CPT/HCPCS: 99212 ==

== ENCOUNTER 2023-08-30 11:16 | Outpatient (REF) | payer OTHER, SELFPAY ==
[2023-08-30 14:36] LABS: Free T4 (Free Thyroxine) 1.13 ng/dL (0.71-1.85); Thyroid Stimulating Hormone 0.53 uIU/mL (0.32-4.0)
== END 2023-08-30 11:17 | disposition home or self-care (01) ==
LOC: HO.10HDL 11:16
PROVIDERS: Visit Provider Internal Medicine Endocrinology, Diabetes & Metabolism
DX: E03.9 Hypothyroidism, unspecified (principal)
CPT/HCPCS: 36415; 84439; 84443